=== PATIENT | male | born 1970 | race African-American/Black ===

== ENCOUNTER 2021-05-22 15:30 | Emergency (ER) | payer SELFPAY ==
--- NOTE | 2021-05-22 16:55 | RAD REPORT ---
EXAM DESCRIPTION: Candy Single View05/22/2021 4:29 pm CLINICAL HISTORY: Shortness of breath COMPARISON: none FINDINGS: Lungs are hyperaerated. The lungs appear clear of acute infiltrate. The heart is normal size IMPRESSION: No acute abnormalities displayed
[2021-05-22 18:05] LABS: Absolute Lymphocytes (CBC) 0.9 K/uL (0.7-4.9); Basophils % 0.6 % (0-1.3); Hematocrit 43.3 % (39.6-49.0); Lymphocytes % 14.4 % (15.3-44.8); MPV 8.2 fL (7.6-11.3); RBC Red Blood Cell Count 5.05 M/uL (4.33-5.43)
[2021-05-22] MEDS ORDERED: LEVALBUTEROL 1.25 MG/3 ML NEB ONE ×2 (18:17→19:46)
[2021-05-22] MEDS ORDERED: METHYLPREDNISOLONE 125 MG INJ ONE (18:17)
[2021-05-22 18:20] LABS: Protime INR 1.15
[2021-05-22 18:25] LABS: ALT/SGPT 27 U/L (12-78); AST/SGOT 21 U/L (15-37); Albumin 4.4 g/dL (3.4-5.0); Alkaline Phosphatase 83 U/L (45-117); BUN Blood Urea Nitrogen 14 mg/dL (7-18); Bicarbonate 21 mmol/L (21-32); Bilirubin Direct 0.1 mg/dL (0-0.2); Bilirubin Total 0.4 mg/dL (0.2-1.0); Glucose Level 86 mg/dL (74-106); Magnesium 2.2 mg/dL (1.8-2.4); NT PRO-BNP 46 pg/mL (<125); Potassium 3.9 mmol/L (3.5-5.1); Protein, Total 8.9 g/dL (6.4-8.2); Sodium Level 140 mmol/L (136-145); Troponin (Emerg Dept Use Only) < 0.02 ng/mL (0.0-0.045)
[2021-05-22] MEDS ORDERED: NA CHLORIDE 0.9% 1,000 ML ONE (19:36)
[2021-05-22] MEDS ORDERED: IPRATROPIUM BROM 0.5MG/2.5ML ONE (19:47)
--- NOTE | 2021-05-22 21:12 | ER ---
Nurse's Notes [facility] Name: Adriel Torres Age: 50 yrs Sex: Male : 1970 Arrival Date: 05/22/2021 Time: 15:34 Bed 16 Private MD: Diagnosis: Unspecified asthma with (acute) exacerbation Presentation: 05/22 15:49 Chief complaint: Patient states: SOB starting at 0900. Pt stated he was not exerting kg himself just watching tv. Tried using his inhaler but no relief. Coronavirus screen: Client denies travel out of the [place] in the last 14 days. Client indicates they have traveled out of the [place] in the last 14 days. At this time, unable to obtain information related to travel outside the [place] Client presents with at least one sign or symptom that may indicate coronavirus-19. Standard/surgical mask placed on the client. Provider contacted for isolation considerations. Ebola Screen: Patient negative for fever greater than or equal to 101.5 degrees Fahrenheit, and additional compatible Ebola Virus Disease symptoms Patient denies exposure to infectious person. Patient denies travel to an Ebola-affected area in the 21 days before illness onset. Initial Sepsis Screen: Does the patient meet any 2 criteria? RR > 20 per min. No. Patient's initial sepsis screen is negative. Does the patient have a suspected source of infection? No. Patient's initial sepsis screen is negative. Risk Assessment: Do you want to hurt yourself or someone else? Patient reports no desire to harm self or others. Onset of symptoms was May 22, 2021 at 09:00. 15:49 Method Of Arrival: Wheelchair kg 15:49 Acuity: ARIANE 3 kg Triage Assessment: 15:51 General: Appears in no apparent distress. Behavior is calm, cooperative, appropriate kg for age, quiet. Pain: Denies pain. Respiratory: Reports shortness of breath cough that is non-productive, air hunger Onset: The symptoms/episode began/occurred suddenly, the patient has moderate shortness of breath. Historical: - Allergies: 15:51 No Known Allergies; kg - Home Meds: 15:51 wixela inhaler [Active]; proair hfa [Active]; kg - PMHx: 15:51 Asthma; kg - PSHx: 15:51 None; kg - Immunization history:: Adult Immunizations up to date, Client reports receiving the 2nd dose of the Covid vaccine, Date received: January 2021. - Social history:: Smoking status: Patient reports the use of cigarette tobacco products, denies chronic smoking, but will smoke occasionally, Patient uses alcohol, weekly. Screenin:25 Abuse screen: Denies threats or abuse. Denies injuries from another. Nutritional iw screening: No deficits noted. Tuberculosis screening: No symptoms or risk factors identified. Fall Risk None identified. Assessment: 18:24 General: Appears in no apparent distress. Behavior is calm, cooperative. Neuro: Level iw of Consciousness is awake, alert, obeys commands, Oriented to person, place, time, situation, Moves all extremities. Full function. Cardiovascular: Rhythm is regular. Respiratory: Reports shortness of breath at rest on exertion Airway is patent Respiratory effort is even, labored, Breath sounds with wheezes bilaterally. Derm: Skin is healthy with good turgor. 19:27 Reassessment: Patient appears in no apparent distress at this time. pt reports still iw feeling SOB, still having some labored breathing and mild wheezing, Doc Page notified, new orders given, pt medicated per DEC , call light in reach. Vital Signs: 15:49 BP 121 / 92; Pulse 110; Resp 22; Temp 98.5; Pulse Ox 92% on R/A; Weight 79.38 kg (R); kg Height 5 ft. 10 in. (177.80 cm); Pain 0/10; 19:10 BP 130 / 85; Pulse 105; Resp 22 S; Pulse Ox 94% on R/A; iw 19:30 BP 144 / 88; Pulse 100; Resp 20; Pulse Ox 100% ; kg 19:45 BP 125 / 95; Resp 20; Pulse Ox 100% ; kg 20:00 BP 133 / 86; Pulse 100; Resp 20; Pulse Ox 100% ; kg 20:15 BP 137 / 83; Pulse 105; Resp 20; Pulse Ox 100% ; kg 20:30 BP 130 / 79; Pulse 95; Resp 20; Pulse Ox 100% ; kg 20:45 BP 119 / 76; Pulse 89; Resp 20; Pulse Ox 100% ; kg 21:55 BP 119 / 76; Pulse 89; Resp 20; Pulse Ox 100% ; kg 15:49 Body Mass Index 25.11 (79.38 kg, 177.80 cm) kg ED Course: 15:34 Patient arrived in ED. ds1 15:51 Triage completed. kg 15:51 Arm band placed on right wrist. kg 16:29 Chest Single View In Process Unspecified. EDMS 17:26 Doc Wilson PA is PHCP. cp 17:27 Doc Bishop MD is Attending Physician. cp 17:50 Riri Kearney, PATSY is Primary Nurse. iw 18:04 Initial lab(s) drawn, by me, sent to lab. Inserted saline lock: 20 gauge in left em1 forearm, using aseptic technique. Blood collected. 18:51 EKG done, by ED staff, reviewed by Doc TORIBIO. em1 21:55 No provider procedures requiring assistance completed. IV discontinued, intact, kg bleeding controlled, No redness/swelling at site. Pressure dressing applied. 21:56 Patient has correct armband on for positive identification. kg Administered Medications: 18:00 Drug: SOLU-Medrol (methylPrednisoLONE) 125 mg Route: IVP; Site: left antecubital; iw 21:57 Follow up: Response: No adverse reaction; Marked relief of symptoms kg 18:16 Drug: Xopenex (levalbuterol) (3) 1.25 mg Route: Inhalation; iw 21:57 Follow up: Response: No adverse reaction; Marked relief of symptoms kg 19:20 Drug: NS 0.9% 1000 ml Route: IV; Rate: 1 bolus; Site: left antecubital; iw 20:00 Follow up: IV Status: Completed infusion iw 21:56 Follow up: Response: No adverse reaction; Marked relief of symptoms; IV Intake: 1000ml kg 19:20 Not Given (Physician Discretion): Xopenex (levalbuterol) (3) 1.25 mg Inhalation once cp 19:27 Drug: Albuterol 2.5 mg Route: Inhalation; iw 19:27 Drug: AtroVENT (ipratropium) Aerosol 0.5 mg Route: Inhalation; iw Intake: 21:56 IV: 1000ml; Total: 1000ml. kg Outcome: 21:12 Discharge ordered by . cp 21:56 Discharged to home ambulatory. kg 21:56 Condition: good 21:56 Discharge instructions given to patient, Instructed on discharge instructions, follow up and referral plans. Demonstrated understanding of instructions, follow-up care, medications, Prescriptions given X 2. 21:59 Patient left the ED. kg Signatures: Dispatcher [employer] ED Sharif, Jewell ds1 Riri Kearney RN RN iw Martinez, Eric em1 Doc Wilson PA PA cp Graham, Kristen, RN RN kg
--- NOTE | 2021-05-22 21:12 | EDPHYS ---
Physician Documentation [facility] Name: Adriel Torres Age: 50 yrs Sex: Male : 1970 Arrival Date: 05/22/2021 Time: 15:34 Bed 16 Private MD: ED Physician Doc Bishop HPI: 05/22 17:30 This 50 yrs old Black Male presents to ER via Wheelchair with complaints of Breathing cp Difficulty. 17:30 The patient has shortness of breath at rest. Onset: The symptoms/episode began/occurred cp 2 day(s) ago, and became worse this morning. Duration: The symptoms are continuous, and are steadily getting worse. Associated signs and symptoms: Pertinent positives: non-productive cough, Pertinent negatives: chest pain, productive cough, diaphoresis, fever, vomiting. Severity of symptoms: in the emergency department the symptoms are unchanged despite home interventions. Historical: - Allergies: 15:51 No Known Allergies; kg - Home Meds: 15:51 wixela inhaler [Active]; proair hfa [Active]; kg - PMHx: 15:51 Asthma; kg - PSHx: 15:51 None; kg - Immunization history:: Adult Immunizations up to date, Client reports receiving the 2nd dose of the Covid vaccine, Date received: January 2021. - Social history:: Smoking status: Patient reports the use of cigarette tobacco products, denies chronic smoking, but will smoke occasionally, Patient uses alcohol, weekly. ROS: 17:35 Constitutional: Negative for body aches, chills, fever, poor PO intake. cp 17:35 Eyes: Negative for injury, pain, redness, and discharge. cp 17:35 ENT: Negative for drainage from ear(s), ear pain, sore throat, difficulty swallowing, difficulty handling secretions. 17:35 Cardiovascular: Negative for chest pain, edema, palpitations. 17:35 Respiratory: Positive for cough, with no reported sputum, shortness of breath, at rest. wheezing. 17:35 Abdomen/GI: Negative for abdominal pain, nausea, vomiting, and diarrhea, constipation. 17:35 Skin: Negative for cellulitis, rash. 17:35 Neuro: Negative for altered mental status, headache, syncope, weakness. 17:35 All other systems are negative. Exam: 17:40 Constitutional: The patient appears in no acute distress, alert, awake, cp non-diaphoretic, non-toxic, well developed, well nourished. 17:40 Head/Face: Normocephalic, atraumatic. cp 17:40 Eyes: Periorbital structures: appear normal, Conjunctiva: normal, no exudate, no injection, Sclera: no appreciated abnormality, Lids and lashes: appear normal, bilaterally. 17:40 ENT: External ear(s): are unremarkable, Ear canal(s): are normal, clear, TM's: bulging, is not appreciated, bilaterally, dullness, bilaterally, erythema, is not appreciated, bilaterally, Nose: is normal, Mouth: Lips: moist, Oral mucosa: pink and intact, moist, Posterior pharynx: Airway: no evidence of obstruction, patent, Tonsils: are normal in appearance, swelling, is not appreciated, erythema, is not appreciated, exudate, is not appreciated. 17:40 Neck: ROM/movement: is normal, is supple, without pain, no range of motions limitations, no meningismus. 17:40 Chest/axilla: Inspection: normal, Palpation: is normal, no crepitus, no tenderness. 17:40 Cardiovascular: Rate: tachycardic, Rhythm: regular, Edema: is not appreciated, JVD: is not appreciated. 17:40 Respiratory: mild respiratory distress is noted, Respirations: labored breathing, that is mild, intercostal retractions, that is mild, Breath sounds: decreased breath sounds, that are mild, diffuse, stridor, is not appreciated, wheezing: that is mild, is heard diffusely. 17:40 Abdomen/GI: Inspection: abdomen appears normal, Palpation: abdomen is soft and non-tender, in all quadrants, rebound tenderness, is not appreciated, voluntary guarding, is not appreciated, involuntary guarding, is not appreciated. 17:40 Back: pain, is absent, ROM is normal. 17:40 Skin: no rash present. 17:40 Neuro: Orientation: to person, place \T\ time. Mentation: is normal. 18:52 ECG was reviewed by the Attending Physician. cp Vital Signs: 15:49 BP 121 / 92; Pulse 110; Resp 22; Temp 98.5; Pulse Ox 92% on R/A; Weight 79.38 kg (R); kg Height 5 ft. 10 in. (177.80 cm); Pain 0/10; 19:10 BP 130 / 85; Pulse 105; Resp 22 S; Pulse Ox 94% on R/A; iw 19:30 BP 144 / 88; Pulse 100; Resp 20; Pulse Ox 100% ; kg 19:45 BP 125 / 95; Resp 20; Pulse Ox 100% ; kg 20:00 BP 133 / 86; Pulse 100; Resp 20; Pulse Ox 100% ; kg 20:15 BP 137 / 83; Pulse 105; Resp 20; Pulse Ox 100% ; kg 20:30 BP 130 / 79; Pulse 95; Resp 20; Pulse Ox 100% ; kg 20:45 BP 119 / 76; Pulse 89; Resp 20; Pulse Ox 100% ; kg 21:55 BP 119 / 76; Pulse 89; Resp 20; Pulse Ox 100% ; kg 15:49 Body Mass Index 25.11 (79.38 kg, 177.80 cm) kg MDM: 17:27 Patient medically screened. brett 21:10 Data reviewed: vital signs, nurses notes, lab test result(s), EKG, radiologic studies, cp plain films. Test interpretation: by ED physician or midlevel provider: ECG, plain radiologic studies. ED course: VSS. Patient reports symptoms markedly improved. Patient resting comfortably in exam room. No signs of respiratory distress. Will discharge to home for continued monitoring. 05/22 17:36 Order name: Basic Metabolic Panel 05/22 17:36 Order name: CBC with Diff; Complete Time: 18:22 05/22 18:23 Interpretation: Normal except: BALDOMERO% 75.2; LYM% 14.4. 05/22 17:36 Order name: LFT's 05/22 17:36 Order name: Magnesium cp 05/22 17:36 Order name: NT PRO-BNP; Complete Time: 18:40 cp 05/22 17:36 Order name: PT-INR; Complete Time: 18:40 05/22 18:41 Interpretation: Abnormal: PT 13.3. 05/22 16:18 Order name: Chest Single View; Complete Time: 17:36 EDMS 05/22 17:36 Interpretation: Report reviewed. 05/22 17:36 Order name: Troponin (emerg Dept Use Only); Complete Time: 18:40 05/22 17:37 Order name: Basic Metabolic Panel; Complete Time: 18:40 EDMS 05/22 18:40 Interpretation: Normal except: CL 109. cp 05/22 17:37 Order name: Liver (Hepatic) Function; Complete Time: 18:40 EDMS 05/22 17:37 Order name: Magnesium; Complete Time: 18:40 EDMS 05/22 17:36 Order name: EKG; Complete Time: 17:37 cp 05/22 17:36 Order name: Cardiac monitoring; Complete Time: 18:52 cp 05/22 17:36 Order name: EKG - Nurse/Tech; Complete Time: 18:51 cp 05/22 17:36 Order name: IV Saline Lock; Complete Time: 18:04 cp 05/22 17:36 Order name: Labs collected and sent; Complete Time: 18:04 cp 05/22 17:36 Order name: O2 Per Protocol; Complete Time: 18:51 cp 05/22 17:36 Order name: O2 Sat Monitoring; Complete Time: 18:52 cp EC:52 Rate is 110 beats/min. Rhythm is regular. QRS interval is normal. QT interval is cp normal. Interpreted by me. Reviewed by me. Administered Medications: 18:00 Drug: SOLU-Medrol (methylPrednisoLONE) 125 mg Route: IVP; Site: left antecubital; iw 21:57 Follow up: Response: No adverse reaction; Marked relief of symptoms kg 18:16 Drug: Xopenex (levalbuterol) (3) 1.25 mg Route: Inhalation; iw 21:57 Follow up: Response: No adverse reaction; Marked relief of symptoms kg 19:20 Drug: NS 0.9% 1000 ml Route: IV; Rate: 1 bolus; Site: left antecubital; iw 20:00 Follow up: IV Status: Completed infusion iw 21:56 Follow up: Response: No adverse reaction; Marked relief of symptoms; IV Intake: 1000ml kg 19:20 Not Given (Physician Discretion): Xopenex (levalbuterol) (3) 1.25 mg Inhalation once cp 19:27 Drug: Albuterol 2.5 mg Route: Inhalation; iw 19:27 Drug: AtroVENT (ipratropium) Aerosol 0.5 mg Route: Inhalation; iw Disposition: 05/23 07:00 Co-signature as Attending Physician, Doc Bishop MD I agree with the assessment and brett plan of care. Disposition Summary: 05/22/21 21:12 Discharge Ordered Location: Home cp Problem: an acute exacerbation cp Symptoms: have improved cp Condition: Stable cp Diagnosis - Unspecified asthma with (acute) exacerbation cp Followup: cp - With: Private Physician - When: 2 - 3 days - Reason: Recheck today's complaints Discharge Instructions: - Discharge Summary Sheet cp - Asthma, Adult cp Forms: - Medication Reconciliation Form cp - Thank You Letter cp - Antibiotic Education cp - Prescription Opioid Use cp Prescriptions: - Prednisone 20 mg Oral Tablet - take 3 tablets by ORAL route once daily for 5 days; 15 tablet; Refills: 0, cp Product Selection Permitted - Albuterol Sulfate 2.5 mg /3 mL (0.083 %) Inhalation Solution for Nebulization - inhale 1 unit by NEBULIZATION route every 8 hours As needed; 1 box; Refills: 0, cp Product Selection Permitted Signatures: Dispatcher [employer] EDMS Doc Bishop MD MD cha Williams, Irene, RN RN iw Doc Wilson PA PA cp Tori Peña RN RN kg Corrections: (The following items were deleted from the chart) 05/22 16:18 15:55 Chest Pa And Lat (2 Views)+[email or web address] ordered. EDVT EDMS
[2021-05-22 22:08] VITALS: TEMP 98.5
[2021-05-22 22:11] VITALS: O2SAT 100
[2021-05-22 22:17] VITALS: BP 119/76
== END 2021-05-22 21:59 | disposition home or self-care (01) ==
LOC: ER 15:30
DX: J45.901 Unspecified asthma with (acute) exacerbation (principal); F17.210 Nicotine dependence, cigarettes, uncomplicated
CPT/HCPCS: 36415; 71045; 80048; 80076; 83735; 83880; 84484; 85025; 85610; 93005; 96361; 96374; 99284; J2930; J7030